=== PATIENT | female | born 1950 | race Caucasian/White ===

== ENCOUNTER 2017-11-01 04:52 | Day surgery (SDC) | payer OTHER ==
[2017-10-27 12:55] VITALS: BMI 26.6
--- NOTE | 2017-11-01 09:13 | HP ---
History & Physical Update - History History: No Change - Physical Physical: No Change - Assessment Assessment: No Change - Plan Plan: No Change
[2017-11-01] MEDS ORDERED: IBUPROFEN 800 MG/8 ML IJ IVPB PRN (09:41)
[2017-11-01] MEDS ORDERED: ONDANSETRON 4 MG/2 ML VIAL IVPUSH PRN ×2 (09:41→10:43)
[2017-11-01] MEDS ORDERED: oxyCODONE HCL 5 MG TABLET PO PRN ×2 (09:41→10:43)
[2017-11-01] MEDS ORDERED: IBUPROFEN 600 MG TABLET (FP) PO PRN (09:41)
--- NOTE | 2017-11-01 09:41 | OP ---
Operative Note - Note: Operative Date: 11/01/17 Pre-Operative Diagnosis: Thick, cystic endometrium Operation: Hysteroscopy, Polypectomy, D&C Findings: Anterior uterine wall 2cm Kamryn polyp Post-Operative Diagnosis: Same as Pre-op Surgeon: Samreen Bentley Anesthesiologist/SHOE LASTER: Avi Paz Anesthesia: MAC Specimens Removed: 1. Endometrial polyp Estimated Blood Loss (mls): 1 Drains & Tubes with Location: Fluid deficit 880cc Drains, Volume Out (mls): 200 Fluid Volume Replaced (mls): 600 Operative Report Dictated: Yes
[2017-11-01] MEDS ORDERED: ELECTROLYTE-148 SOLN 1,000 ML IV SCH (09:45)
[2017-11-01] MEDS ORDERED: PROPOFOL 20 ML ONE (09:49)
[2017-11-01] MEDS ORDERED: MIDAZOLAM HCL 2 MG/2 ML SINGLE DOSE VIAL ONE ×2 (09:49)
[2017-11-01] MEDS ORDERED: ceFAZolin SODIUM 1 GM VIAL ONE ×2 (09:49)
[2017-11-01] MEDS ORDERED: ceFAZolin SODIUM 1 GM VIAL IVPB ONE (10:00)
[2017-11-01] MEDS ORDERED: SILVER NITRATE 75% APPLIC STCK 1 PKT EACH TP ONE (10:30)
[2017-11-01] MEDS ORDERED: PROMETHAZINE HCL 25 MG/1 ML VIAL IVPUSH PRN (10:43)
[2017-11-01] MEDS ORDERED: LACTATED RINGERS SOLUTION 1,000 ML IV SCH (10:45)
[2017-11-01 12:37] VITALS: BP 117/80; PULSE 61; TEMP 97.9
--- NOTE | 2017-11-02 07:37 | OP ---
DATE OF OPERATION: 11/01/2017 PREOPERATIVE DIAGNOSIS: Thick cystic endometrium. POSTOPERATIVE DIAGNOSIS: Thick cystic endometrium and finding of endometrial polyp. PROCEDURE PERFORMED: Hysteroscopy, polypectomy, dilatation and curettage. SURGEON: Umm Rehman MD ANESTHESIOLOGIST: Avi Paz M.D. ANESTHESIA: MAC. FINDINGS: Anterior uterine wall 2-cm sessile polyp. SPECIMEN REMOVED: Endometrial podiatry. DESCRIPTION OF PROCEDURE: After ensuring informed consent, the patient was brought to the operating room, and she was placed in the dorsal lithotomy position. After achieving adequate anesthesia, the perineum was prepped and draped in sterile fashion. After a 5-mm TruClear hysteroscope was assembled, white balanced and primed, Garcia retractors were placed into the vaginal. The anterior cervical lip was articulated with a single-tooth tenaculum. The cervix was dilated with gradually increasing in size dilators. The hysteroscope subsequently was introduced into the cervix. Excellent visualization of bilateral ostia was achieved, and proper placement was confirmed with an anterior uterine bubble. Subsequently the 2-cm anterior wall fibroid was visualized and resected with introduction of the TruClear resectoscope piece. The entire endometrial cavity was visualized and found free of any other abnormal structures. All instruments were removed from the uterus, cervix and vagina. Excellent hemostasis was achieved with silver nitrate sticks. Estimated blood loss was 1 mL. The patient received 600 mL of IV fluids and drained 200 mL of urine, which was sent for urine culture. Fluid deficit was noted to be 880 mL. The patient tolerated the procedure well. Instrument and sponge count was correct x2. She was brought back to the recovery room in stable condition. UMM REHMAN M.D. [id number]
--- NOTE | 2017-11-02 12:57 | PATH ---
Surgical Pathology Report Patient Name: JACKIE KOENIG [facility]. Rec. #: [id number] /Age/Gender: 1950 (Age: 67) / F Account: [id number] Location: [facility] SURGICAL Taken: 11/01/2017 Received: 11/01/2017 Reported: 11/02/2017 Physicians: Samreen Bentley M.D. Specimen(s) Received ENDOMETRIAL POLYPS Clinical History Thickened endometrium Final Diagnosis UTERUS, ENDOMETRIAL POLYP, DILATION AND CURETTAGE: FRAGMENTS OF ENDOMETRIAL POLYP, LOWER UTERINE SEGMENT, AND SCANT BENIGN ENDOCERVICAL TISSUE. Electronically Signed Jackie Rousseau M.D. Gross Description Received in formalin labeled "endometrial polyp," is a 1.0 x 0.9 x 0.3 cm aggregate of monge soft tissue fragments admixed with mucus. The formalin is filtered and the specimen is entirely submitted in one cassette. /11/01/2017 saudi11/01/2017
== END 2017-11-01 13:15 | disposition home or self-care (01) ==
LOC: JASU-SURG 04:52
PROVIDERS: ATTEND Obstetrics & Gynecology
PROC: 0UDB8ZZ Extraction of Endometrium, Via Natural or Artificial Opening Endoscopic (ICD-10-PCS; 2017-11-01)
PROC: 0UB98ZX Excision of Uterus, Via Natural or Artificial Opening Endoscopic, Diagnostic (ICD-10-PCS; principal; 2017-11-01 09:00)
DX: N84.0 Polyp of corpus uteri (principal)
CPT/HCPCS: 87086; 88305-TC

== ENCOUNTER 2024-03-06 05:01 | Day surgery (SDC) | payer OTHER ==
[2024-03-05 08:49] VITALS: BMI 26.9
[2024-03-06] MEDS ORDERED: LIDOCAINE HCL/PF 2% SDV 5ML VIAL ONE (07:15)
[2024-03-06] MEDS ORDERED: ONDANSETRON 4 MG/2 ML VIAL ONE (07:15)
[2024-03-06] MEDS ORDERED: PROPOFOL 40 ML ONE (07:15)
[2024-03-06] MEDS ORDERED: SUCCINYLCHOLINE CHLORIDE 200 MG/10 ML SYRINGE ONE (07:15)
[2024-03-06] MEDS ORDERED: DEXAMETHASONE SOD PHOSPHATE 4 MG/1 ML VIAL ONE (07:15)
[2024-03-06] MEDS ORDERED: MIDAZOLAM HCL 2 MG/2 ML SINGLE DOSE VIAL ONE (07:15)
[2024-03-06] MEDS ORDERED: KETOROLAC TROMETHAMINE 30 MG/1 ML VIAL ONE (07:15)
[2024-03-06] MEDS ORDERED: ONDANSETRON 4 MG/2 ML VIAL IVPUSH PRN ×2 (07:21→08:19)
[2024-03-06] MEDS ORDERED: oxyCODONE HCL 5 MG TABLET PO PRN ×2 (07:21→08:19)
[2024-03-06 07:33] LABS: POTASSIUM 4.2 mmol/L (3.5-5.1)
[2024-03-06 07:35] LABS: INR 0.99 (0.83-1.09); PROTHROMBIN TIME (PATIENT) 11.2 SEC (9.7-13.0)
[2024-03-06 07:35] LABS: CALCIUM 8.7 mg/dL (8.5-10.1)
[2024-03-06 07:36] LABS: BLOOD UREA NITROGEN 14.2 mg/dL (7-18)
[2024-03-06 07:39] LABS: CREATININE 0.8 mg/dL (0.55-1.3)
[2024-03-06 07:40] LABS: TOT PROT 7.3 g/dl (6.4-8.2)
[2024-03-06 07:41] LABS: BILIRUBIN,TOTAL 0.6 mg/dL (0.2-1)
[2024-03-06 07:44] LABS: HEMATOCRIT 38.9 % (32.4-45.2); MCH 31.1 pg (25.7-33.7); MCHC 33.5 g/dl (32.0-36.0); MEAN CELL VOLUME 93.1 fl (80-96); MEAN PLT VOLUME 8.6 fl (7.5-11.1); PLATELET COUNT 303 10^3/uL (134-434); RBC 4.18 M/mm3 (3.60-5.2); RDW 13.7 % (11.6-15.6); WHITE BLOOD COUNT 5.2 K/mm3 (4.0-10.0)
[2024-03-06] MEDS ORDERED: IBUPROFEN 600 MG TABLET (FP) PO PRN (08:19)
[2024-03-06] MEDS ORDERED: IBUPROFEN 800 MG/8 ML IJ IVPB PRN (08:19)
[2024-03-06] MEDS ORDERED: ELECTROLYTE-148 SOLN 1,000 ML IV SCH (08:30)
[2024-03-06] MEDS: LACTATED RINGERS SOLUTION 1,000 ML IV SCH (09:21)
[2024-03-06 12:53] VITALS: BP 137/69; PULSE 71; RESP 18; TEMP 97.8
== END 2024-03-06 12:25 | disposition home or self-care (01) ==
LOC: JASU-SURG 05:01
PROVIDERS: ATTEND Obstetrics & Gynecology
PROC: 0UB98ZZ Excision of Uterus, Via Natural or Artificial Opening Endoscopic (ICD-10-PCS; principal; 2024-03-06 07:30)
DX: N84.0 Polyp of corpus uteri (principal)
CPT/HCPCS: 36415; 80053; 85027; 85610; 86850; 86900; 86901; 88305-TC; 93005; 93010; 94760